=== PATIENT | male | born 1960 | race Caucasian/White ===

== ENCOUNTER 2018-03-20 15:20 | Emergency (ER) | payer BC ==
[2018-03-20] MEDS ORDERED: methylPREDNISolone Sodium Succinate 125 MG/2 ML SDV ONE (15:34)
[2018-03-20] MEDS ORDERED: Albuterol/Ipratropium 3.0-0.5 MG/3 ML Neb Soln ONE (15:36)
[2018-03-21 08:05] LABS: CHLORIDE,CL 106 mmol/L (98-107); SODIUM,NA 139 mmol/L (136-148)
--- NOTE | 2018-03-21 12:10 | CR ---
EXAM DATE: 03/20/18 PATIENT'S AGE: 57 Patient: CARMEN BASURTO Facility: [place], [place] Site . Site : 1960 Study: XRay Chest -03/20/2018 4:15:27 PM Ordering Physician: JENNIFER Final Report: HISTORY: Shortness of breath. FINDINGS: PA and lateral chest radiograph demonstrates cardiac silhouette at the upper limits normal. Pulmonary vasculature is free of cephalization. No consolidation or pleural effusion is seen. The bony structures are within normal limits for age. IMPRESSION: No acute cardiopulmonary disease. Dictated by Any Porras MD @ 03/20/2018 4:31:27 PM Dictated by: Any Porras MD @ 03/20/2018 16:31:32 (Electronic Signature) MReport Signed by Proxy. CAM
== END 2018-03-20 17:00 | disposition home or self-care (01) ==
LOC: MW.ED 15:20
DX: R06.02 Shortness of breath (principal)
CPT/HCPCS: 36415; 71046; 80053; 83880; 84484; 85025; 85379; 93005; 96374; 99285; J2930